=== PATIENT | male | born 1990 | race Caucasian/White ===

== ENCOUNTER 2018-02-22 16:18 | Emergency (ER) | payer BC, MEDICAID ==
[~2018-02-22] VITALS: Ht 177.8 cm; Wt 99.8 kg
[2018-02-22 16:18] VITALS: BP_SYST 137
[~2018-02-22 16:18] MED LIST: ALBU17AE26 IH
[2018-02-22] MEDS ORDERED: KETOROLAC TROMETHAMINE 60 MG/2 ML VIAL IM ONE (16:45)
[2018-02-22] MEDS ORDERED: cefTRIAXone 1 GM in LIDOCAINE 1%, 20 ML MDV 2.1 ML IM ONE (16:45)
[2018-02-22 17:17] VITALS: BP_SYST 137
== END 2018-02-22 17:17 | disposition home or self-care (01) ==
LOC: SED 16:18
DX: K08.89 Other specified disorders of teeth and supporting structures (principal); J45.909 Unspecified asthma, uncomplicated
CPT/HCPCS: 96372; 99284; J0696; J1885; J2001

== ENCOUNTER 2019-03-29 17:11 | Emergency (ER) | payer BC, MEDICAID ==
[~2019-03-29] VITALS: Ht 177.8 cm; Wt 104.3 kg
[2019-03-29 17:21] VITALS: BP_SYST 160
--- NOTE | 2019-03-29 17:50 | NUR ---
Patient to ER bed 03 for evaluation. Side rails up.
--- NOTE | 2019-03-29 20:10 | NUR ---
Patient to ER bed 07 to gown for evaluation. Side rails up.
--- NOTE | 2019-03-29 20:11 | NUR ---
Pt ambulated into ED c/o RLQ pain x 1 week with bloating, constipation, vomiting. Skin pink dry and warm, breathing even and unlabored. No other injuries/complaints per pt/noted. Will continue to monitor.
--- NOTE | 2019-03-29 20:12 | NUR ---
ER Dr. Mi at bedside examining patient.
--- NOTE | 2019-03-29 20:15 | NUR ---
Pt taken to radiology via wheelchair in stable condition
--- NOTE | 2019-03-29 20:25 | NUR ---
PT returned from radiology in stable condition
--- NOTE | 2019-03-29 20:31 | NUR ---
Lab at bedside for blood draw
[2019-03-29 20:39] LABS: BASOPHILS # (AUTO) 0.1 K/uL (0.0-0.2); BASOPHILS % (AUTO) 0.6 % (0.0-2.0); EOSINOPHILS # (AUTO) 0.2 K/uL (0.0-0.4); EOSINOPHILS % (AUTO) 1.6 % (0.0-4.0); HEMATOCRIT 46.8 % (36-54); HEMOGLOBIN 16.2 g/dL (14.0-18.0); LYMPHOCYTES # (AUTO) 1.7 K/uL (1.0-5.5); MEAN CORPUSCULAR HEMOGLOBIN 32 pg (27-31); MEAN CORPUSCULAR HGB CONC 35 % (32-36); MEAN CORPUSCULAR VOLUME 93 fL (79.0-98.0); MONOCYTES # (AUTO) 0.5 K/uL (0.0-1.0); MONOCYTES % (AUTO) 4.7 % (1.7-9.3); NEUTROPHILS # (AUTO) 8.7 K/uL (1.8-7.7); NEUTROPHILS % (AUTO) 78.1 % (40.0-70.0); PLATELET COUNT (AUTO) 261 K/uL (130-430); RED BLOOD CELL COUNT(AUTO) 5.03 MIL/uL (4.2-6.2); RED CELL DISTRIBUTION WIDTH 13.3 % (9.0-15.0); WHITE BLOOD COUNT (AUTO) 11.2 K/uL (4.8-10.8)
--- NOTE | 2019-03-29 20:56 | NUR ---
Pt resting comfortably in bed with no signs of distress
[2019-03-29 20:59] LABS: CALCIUM 8.9 mg/dL (8.4-11.0); CREATININE 0.98 mg/dL (0.55-1.30); POTASSIUM 4.2 mmol/L (3.5-5.1)
[2019-03-29 21:03] LABS: TOTAL BILIRUBIN 1.2 mg/dL (0.0-1.0)
[2019-03-29 21:17] LABS: BILIRUBIN,URINE NEGATIVE (NEGATIVE); BLOOD, URINE NEGATIVE (NEGATIVE); CLARITY/URINE CLEAR (CLEAR); COLOR,URINE YELLOW (YELLOW); GLUCOSE,URINE NEGATIVE (NEGATIVE); KETONES,URINE NEGATIVE (NEGATIVE); LEUKOCYTE ESTERASE ,URINE NEGATIVE (NEGATIVE); NITRITE, URINE NEGATIVE (NEGATIVE); PROTEIN URINE NEGATIVE (NEGATIVE)
--- NOTE | 2019-03-29 21:40 | NUR ---
ER Dr. Mi at bedside updating patient.
[2019-03-29 21:50] VITALS: BP_SYST 138
--- NOTE | 2019-03-29 21:50 | NUR ---
Patient given written and verbal discharge instructions and verbalizes understanding. ER MD Mi discussed with patient the results and treatment provided. Patient in stable condition. ID arm band removed. IV catheter removed intact and dressing applied, no active bleeding. Rx of Bentyl given. Patient educated on pain management and to follow up with PMD. Pain Scale 0. Opportunity for questions provided and answered. Medication side effect fact sheet provided.
== END 2019-03-29 21:50 | disposition home or self-care (01) ==
LOC: SED 17:11
DX: K57.30 Diverticulosis of large intestine without perforation or abscess without bleeding (principal); J45.909 Unspecified asthma, uncomplicated; F12.90 Cannabis use, unspecified, uncomplicated; Z79.899 Other long term (current) drug therapy
CPT/HCPCS: 36415; 74021; 80053; 81003; 83690-TC; 85025; 99284

== ENCOUNTER 2019-04-02 21:08 | Emergency (ER) | payer MEDICAID ==
[~2019-04-02] VITALS: Ht 177.8 cm; Wt 104.3 kg
[2019-04-02 21:58] VITALS: BP_SYST 158
[2019-04-03] MEDS ORDERED: KETOROLAC TROMETHAMINE 30 MG VIAL IVP ONE
[2019-04-03 01:26] LABS: BASOPHILS # (AUTO) 0.1 K/uL (0.0-0.2); BASOPHILS % (AUTO) 1.1 % (0.0-2.0); EOSINOPHILS # (AUTO) 0.2 K/uL (0.0-0.4); HEMOGLOBIN 15.8 g/dL (14.0-18.0); LYMPHOCYTES # (AUTO) 2.1 K/uL (1.0-5.5); LYMPHOCYTES % (AUTO) 20.6 % (20.5-51.5); MEAN CORPUSCULAR HEMOGLOBIN 32 pg (27-31); MEAN CORPUSCULAR HGB CONC 35 % (32-36); MEAN CORPUSCULAR VOLUME 93 fL (79.0-98.0); MONOCYTES # (AUTO) 0.7 K/uL (0.0-1.0); MONOCYTES % (AUTO) 7.4 % (1.7-9.3); NEUTROPHILS % (AUTO) 68.9 % (40.0-70.0); PLATELET COUNT (AUTO) 267 K/uL (130-430); RED BLOOD CELL COUNT(AUTO) 4.86 MIL/uL (4.2-6.2); RED CELL DISTRIBUTION WIDTH 12.9 % (9.0-15.0); WHITE BLOOD COUNT (AUTO) 10.1 K/uL (4.8-10.8)
[2019-04-03 01:41] LABS: CALCIUM 9.2 mg/dL (8.4-11.0); CREATININE 1.12 mg/dL (0.55-1.30); POTASSIUM 3.7 mmol/L (3.5-5.1)
[2019-04-03 01:47] LABS: ALBUMIN 4.2 g/dL (3.4-4.8); TOTAL BILIRUBIN 1.5 mg/dL (0.0-1.0)
[2019-04-03 02:40] VITALS: BP_SYST 158
== END 2019-04-03 02:40 | disposition home or self-care (01) ==
LOC: SED 21:08
DX: R07.89 Other chest pain (principal); J45.909 Unspecified asthma, uncomplicated; F12.90 Cannabis use, unspecified, uncomplicated
CPT/HCPCS: 36415; 71045; 80053; 84484; 85025; 96374; 99284; J1885

== ENCOUNTER 2019-07-02 14:53 | Emergency (ER) | payer MEDICAID ==
[~2019-07-02] VITALS: Ht 177.8 cm; Wt 102.1 kg
[2019-07-02 15:12] VITALS: BP_SYST 161
--- NOTE | 2019-07-02 17:22 | NUR ---
Placed in hallway chair 1.
--- NOTE | 2019-07-02 17:24 | NUR ---
Pt brought by self, A&Ox4, pt presents to ER with chestwall pain x 1 month and mild SOB, skin pink and warm, cap refill <3, VSS, respirations even and unlabored , ambulatory, speaking in full sentences, no chest retractions noted.
--- NOTE | 2019-07-02 17:25 | NUR ---
Dr Lawrence at bedside examining patient
[2019-07-02 17:38] VITALS: BP_SYST 148
--- NOTE | 2019-07-02 17:39 | NUR ---
DPatient given written and verbal discharge instructions and verbalizes understanding. ER MD discussed with patient the results and treatment provided. Patient in stable condition. ID arm band removed. Rx of Naprosyn given. Patient educated on pain management and to follow up with PMD. Pain Scale 0/10 tolerable for patient . Opportunity for questions provided and answered. Medication side effect fact sheet provided.
== END 2019-07-02 17:38 | disposition home or self-care (01) ==
LOC: SED 14:53
DX: M94.0 Chondrocostal junction syndrome [Tietze] (principal); F17.290 Nicotine dependence, other tobacco product, uncomplicated
CPT/HCPCS: 93005; 99283

== ENCOUNTER 2020-04-13 16:42 | Emergency (ER) | payer MEDICAID ==
[~2020-04-13] VITALS: Ht 177.8 cm; Wt 99.8 kg
[2020-04-13 16:50] VITALS: BP_SYST 153
[2020-04-13 17:12] VITALS: BP_SYST 153
== END 2020-04-13 17:12 | disposition home or self-care (01) ==
LOC: SED 16:42
DX: K08.89 Other specified disorders of teeth and supporting structures (principal)
CPT/HCPCS: 99283